=== PATIENT | female | born 1940 | race Caucasian/White ===

== ENCOUNTER 2021-09-16 06:32 | Inpatient (IN) | payer OTHER ==
[2021-09-14 13:26] LABS: BASOPHILS % (AUTO) 1.2 % (0.0-5.0); EOSINOPHILS % (AUTO) 2.9 % (0.0-8.0); HEMATOCRIT 38.3 % (36-48); LYMPHOCYTES % (AUTO) 29.9 % (21.0-51.0); MEAN CORPUSCULAR HEMOGLOBIN 32.8 pg (27.0-33.0); MEAN CORPUSCULAR HGB CONC 33.4 g/dL (32.0-36.0); MEAN CORPUSCULAR VOLUME 98.2 fL (79-99); MONOCYTES % (AUTO) 11.9 % (3.0-13.0); NEUTROPHILS % (AUTO) 53.9 % (40.0-77.0); PLATELET COUNT (AUTO) 193 K/uL (130-400); RED CELL DISTRIBUTION WIDTH 13.8 % (11.0-15.5); WHITE BLOOD COUNT (AUTO) 5.2 K/uL (4.8-10.8)
[2021-09-14 13:35] LABS: CREATININE 0.7 mg/dL (0.5-1.5); POTASSIUM 4.3 mmol/L (3.5-5.1)
[2021-09-14 13:43] LABS: APPEARANCE,URINE Clear (CLEAR); BILIRUBIN,URINE Negative (NEGATIVE); COLOR,URINE Yellow (YELLOW); GLUCOSE, URINE (UA) Negative (NEGATIVE); KETONES,URINE Negative (NEGATIVE); LEUKOCYTE ESTERASE ,URINE Moderate (NEGATIVE); NITRATE,URINE Negative (NEGATIVE); OCCULT BLOOD,URINE Negative (NEGATIVE); PROTEIN,URINE Negative (NEGATIVE); UROBILINOGEN,URINE 0.2 mg/dL (0.2-1.0)
[2021-09-14 14:03] LABS: INR 1.1 (0.85-1.15); PROTHROMBIN TIME 11.9 SEC (9.6-11.6)
[2021-09-14 14:22] LABS: BACTERIA,URINE Rare /HPF (None Seen); RBC,URINE 0-1 /HPF (0-1); SQUAMOUS EPITHELIAL CELL,UR Rare /HPF (0-2)
[2021-09-15 11:46] VITALS: BP 193/88
[~2021-09-16] VITALS: Ht 162.6 cm; Wt 82.4 kg
[2021-09-16] VITALS (21 sets, daily range): BP systolic 97–182; BP diastolic 48–103
[~2021-09-16 06:32] MED LIST: DABI150C PO; HYDR50TA PO; LEVO125C4 PO; METO-391 PO
[2021-09-16] MEDS ORDERED: LACTATED RINGERS 1000ML 1,000 ML IV ONE (07:05)
[2021-09-16] MEDS ORDERED: GENTAMICIN SULFATE 240 MG in 0.9%NACL 100ML 100 ML IV SCH (07:30)
[2021-09-16] MEDS ORDERED: CEFAZOLIN SODIUM 1 GM VIAL ONE (07:38)
[2021-09-16] MEDS ORDERED: PROPOFOL 10 MG/ML 20ML VIAL IV ONE ×2 (08:01→08:11)
[2021-09-16] MEDS ORDERED: LIDOCAINE PF 100MG/5ML (2%) SYRINGE 5ML ONE (08:01)
[2021-09-16] MEDS ORDERED: SUCCINYLCHOLINE CHLORIDE 20 MG/ML 10 ML VIAL ONE (08:01)
[2021-09-16] MEDS ORDERED: FENTANYL CITRATE PF 50 MCG/1 ML 2ML VIAL ONE (08:02)
[2021-09-16] MEDS ORDERED: ROCURONIUM 10MG/1ML SYR 10 MG/ML ML ONE ×2 (08:02→11:21)
[2021-09-16] MEDS ORDERED: ROPIVACAINE 0.5% 5MG/ML 30ML IJ ONE (08:07)
[2021-09-16] MEDS ORDERED: PHENYLEPHRINE HCL 10 MG/ML 1ML VIAL IV ONE ×2 (08:08)
[2021-09-16] MEDS: CEFAZOLIN SODIUM 1 GM VIAL ONE ×2 (08:39→09:08)
[2021-09-16] MEDS ORDERED: GLYCOPYRROLATE 1 MG/5 ML SYRINGE ONE ×2 (09:09→12:28)
[2021-09-16] MEDS ORDERED: CEFAZOLIN SODIUM 1 GM VIAL IRRIG ONE (09:55)
[2021-09-16] MEDS ORDERED: NEOSTIGMINE 5MG/5ML SYR IV ONE (11:40)
[2021-09-16] MEDS ORDERED: ONDANSETRON 4MG INJ ONE (11:55)
[2021-09-16] MEDS ORDERED: MEPERIDINE-PF 25 MG/ML SYG ONE ×3 (11:56→13:06)
[2021-09-16] MEDS ORDERED: POTASSIUM CHLORIDE 20MEQ/100ML 100 ML IV PRN (12:00)
[2021-09-16] MEDS ORDERED: TRAMADOL HCL 50 MG TABLET PO PRN (12:00)
[2021-09-16] MEDS ORDERED: LIDOCAINE HCL-MPF 1% 2ML VIAL IV PRN (12:00)
[2021-09-16] MEDS ORDERED: KCL 20 MEQ ERTAB PO PRN (12:00)
[2021-09-16] MEDS ORDERED: POTASSIUM CHLORIDE 10% ELIXIR 20 MEQ/15 ML UDCUP PO PRN (12:00)
[2021-09-16] MEDS ORDERED: ONDANSETRON 4MG INJ IVP PRN (12:00)
[2021-09-16] MEDS ORDERED: DiphenhydrAMINE HCL 50 MG/ML VIAL IVP PRN (12:00)
[2021-09-16] MEDS ORDERED: KETOROLAC 15MG/ML VIAL (15MG/ML) IV PRN (12:00)
[2021-09-16] MEDS: 0.9%NACL 1000ML 1,000 ML IV SCH ×2 (12:00→18:28)
[2021-09-16] MEDS: ACETAMINOPHEN 500 MG TABLET PO SCH ×2 (14:26→20:59)
[2021-09-16] MEDS: OXYCODONE HCL 5 MG TAB PO PRN (15:51)
[2021-09-16] MEDS: CELECOXIB 200 MG CAP PO SCH ×2 (20:58→21:00)
[2021-09-16] MEDS: CEFAZOLIN SODIUM 1 GM VIAL IVP SCH (20:58)
[2021-09-16] MEDS: FAMOTIDINE 20MG TAB PO SCH (20:58)
[2021-09-16] MEDS: METOPROLOL SUCCINATE 50 MG TAB.SR.24H PO SCH (20:59)
[2021-09-16] MEDS ORDERED: DABIGATRAN 150MG CAPSULE PO SCH (21:00)
[2021-09-17] VITALS (7 sets, daily range): BP systolic 118–146; BP diastolic 33–50
[2021-09-17] MEDS: CEFAZOLIN SODIUM 1 GM VIAL IVP SCH (00:23)
[2021-09-17] MEDS: ACETAMINOPHEN 500 MG TABLET PO SCH ×3 (05:02→21:01)
[2021-09-17 05:18] LABS: MEAN CORPUSCULAR HEMOGLOBIN 32.8 pg (27.0-33.0); MEAN CORPUSCULAR HGB CONC 33.8 g/dL (32.0-36.0); RED BLOOD CELL COUNT(AUTO) 2.68 MIL/uL (4.00-5.50); RED CELL DISTRIBUTION WIDTH 13.7 % (11.0-15.5); WHITE BLOOD COUNT (AUTO) 5.4 K/uL (4.8-10.8)
[2021-09-17 05:31] LABS: CREATININE 0.6 mg/dL (0.5-1.5); POTASSIUM 3.8 mmol/L (3.5-5.1)
[2021-09-17] MEDS: LEVOTHYROXINE 125 MCG TABLET PO SCH (06:00)
[2021-09-17] MEDS: OXYCODONE HCL 5 MG TAB PO PRN (08:00)
[2021-09-17] MEDS: 0.9%NACL 1000ML 1,000 ML IV SCH (08:00)
[2021-09-17] MEDS: METOPROLOL SUCCINATE 50 MG TAB.SR.24H PO SCH ×2 (08:07→21:00)
[2021-09-17] MEDS: HYDROCHLOROTHIAZIDE 25 MG TABLET PO SCH (08:07)
[2021-09-17] MEDS: TAMSULOSIN HCL 0.4 MG CAP.ER.24H PO SCH ×2 (09:00→09:37)
[2021-09-17] MEDS: CELECOXIB 200 MG CAP PO SCH ×2 (09:00→21:00)
[2021-09-17] MEDS: DABIGATRAN 150MG CAPSULE PO SCH ×2 (09:36→21:00)
[2021-09-17] MEDS: FAMOTIDINE 20MG TAB PO SCH ×2 (09:36→20:59)
[2021-09-17] MEDS: POLYETHYLENE GLYCOL 3350 17 GM POWD.PACK PO SCH (09:37)
[2021-09-17] MEDS: FERROUS FUMARATE 324 MG TABLET PO PRN (12:00)
[2021-09-17] MEDS: CALCIUM CARB 500MG PO PRN ×2 (12:00→21:01)
[2021-09-18] MEDS: ACETAMINOPHEN 500 MG TABLET PO SCH ×3 (03:12→19:33)
[2021-09-18] MEDS: OXYCODONE HCL 5 MG TAB PO PRN ×4 (03:13→19:34)
[2021-09-18 03:59] VITALS: BP 146/42
[2021-09-18 04:41] LABS: MEAN CORPUSCULAR HEMOGLOBIN 33.1 pg (27.0-33.0); MEAN CORPUSCULAR HGB CONC 33.6 g/dL (32.0-36.0); MEAN CORPUSCULAR VOLUME 98.4 fL (79-99); RED BLOOD CELL COUNT(AUTO) 2.54 MIL/uL (4.00-5.50); RED CELL DISTRIBUTION WIDTH 13.6 % (11.0-15.5)
[2021-09-18] MEDS: LEVOTHYROXINE 125 MCG TABLET PO SCH (05:26)
[2021-09-18 08:00] VITALS: BP 119/32
[2021-09-18] MEDS: POLYETHYLENE GLYCOL 3350 17 GM POWD.PACK PO SCH (09:00)
[2021-09-18] MEDS: CELECOXIB 200 MG CAP PO SCH ×2 (09:00→19:34)
[2021-09-18] MEDS: HYDROCHLOROTHIAZIDE 25 MG TABLET PO SCH (09:00)
[2021-09-18] MEDS: METOPROLOL SUCCINATE 50 MG TAB.SR.24H PO SCH ×2 (09:00→19:32)
[2021-09-18 09:30] VITALS: BP 118/55
[2021-09-18] MEDS: FAMOTIDINE 20MG TAB PO SCH ×2 (10:27→19:32)
[2021-09-18] MEDS: TAMSULOSIN HCL 0.4 MG CAP.ER.24H PO SCH (10:27)
[2021-09-18] MEDS: FERROUS FUMARATE 324 MG TABLET PO PRN (10:27)
[2021-09-18] MEDS: DABIGATRAN 150MG CAPSULE PO SCH ×2 (10:27→19:33)
[2021-09-18 12:00] VITALS: BP 126/38
[2021-09-18 16:00] VITALS: BP 126/40
[2021-09-18 20:05] VITALS: BP 146/45
[2021-09-18] MEDS ORDERED: DIPHENHYDRAMINE HCL 25 MG CAPSULE PO ONE (21:00)
[2021-09-19 00:06] VITALS: BP 125/48
[2021-09-19] MEDS: ACETAMINOPHEN 500 MG TABLET PO SCH ×4 (03:25→19:42)
[2021-09-19] MEDS: OXYCODONE HCL 5 MG TAB PO PRN ×3 (03:26→19:42)
[2021-09-19 03:55] VITALS: BP 140/55
[2021-09-19 04:34] LABS: HEMATOCRIT 22.3 % (36-48); MEAN CORPUSCULAR HEMOGLOBIN 32.6 pg (27.0-33.0); MEAN CORPUSCULAR HGB CONC 34.1 g/dL (32.0-36.0); MEAN CORPUSCULAR VOLUME 95.7 fL (79-99); RED BLOOD CELL COUNT(AUTO) 2.33 MIL/uL (4.00-5.50); RED CELL DISTRIBUTION WIDTH 13.2 % (11.0-15.5); WHITE BLOOD COUNT (AUTO) 5.3 K/uL (4.8-10.8)
[2021-09-19] MEDS: LEVOTHYROXINE 125 MCG TABLET PO SCH (06:20)
[2021-09-19] MEDS: FERROUS FUMARATE 324 MG TABLET PO PRN (06:21)
[2021-09-19] MEDS: FAMOTIDINE 20MG TAB PO SCH ×2 (07:59→19:42)
[2021-09-19] MEDS: METOPROLOL SUCCINATE 50 MG TAB.SR.24H PO SCH ×2 (07:59→19:42)
[2021-09-19 08:00] VITALS: BP 121/55
[2021-09-19] MEDS: CELECOXIB 200 MG CAP PO SCH ×2 (09:00→18:10)
[2021-09-19] MEDS: HYDROCHLOROTHIAZIDE 25 MG TABLET PO SCH (09:00)
[2021-09-19] MEDS: TAMSULOSIN HCL 0.4 MG CAP.ER.24H PO SCH (09:00)
[2021-09-19] MEDS: POLYETHYLENE GLYCOL 3350 17 GM POWD.PACK PO SCH (09:00)
[2021-09-19] MEDS: DABIGATRAN 150MG CAPSULE PO SCH ×2 (09:15→19:42)
[2021-09-19] MEDS ORDERED: BISACODYL 10 MG SUPP.RECT RC PRN (12:00)
[2021-09-19 12:03] VITALS: BP 132/44
[2021-09-19] MEDS ORDERED: FERR324T10 PO (14:21)
[2021-09-19] MEDS ORDERED: HYDR-4060 PO (14:21)
[2021-09-19] MEDS ORDERED: ACETAMINOPHEN 325 MG TAB PO SCH (14:30)
[2021-09-19 16:00] VITALS: BP 144/63
[2021-09-19 20:32] VITALS: BP 149/42
== END 2021-09-19 21:35 | disposition home health service (06) | DRG 470 ==
LOC: DAH 06:32 → DAHIP 06:33 → OBSVTOIN 06:33 → DAH 06:33 → 4AH 13:52
PROVIDERS: ADMIT Orthopaedic Surgery; ATTEND Orthopaedic Surgery
PROC: 0SR90JZ Replacement of Right Hip Joint with Synthetic Substitute, Open Approach (ICD-10-PCS; principal; 2021-09-16 09:50)
PROC: 30233N1 Transfusion of Nonautologous Red Blood Cells into Peripheral Vein, Percutaneous Approach (ICD-10-PCS; 2021-09-19)
DX: M16.11 Unilateral primary osteoarthritis, right hip (principal); D62 Acute posthemorrhagic anemia; R26.89 Other abnormalities of gait and mobility; G89.29 Other chronic pain; F41.9 Anxiety disorder, unspecified; F32.A Depression, unspecified; I48.91 Unspecified atrial fibrillation; M79.7 Fibromyalgia; I10 Essential (primary) hypertension; Z88.6 Allergy status to analgesic agent; Z88.8 Allergy status to other drugs, medicaments and biological substances; Z90.49 Acquired absence of other specified parts of digestive tract; Z86.711 Personal history of pulmonary embolism; Z86.718 Personal history of other venous thrombosis and embolism; Z85.038 Personal history of other malignant neoplasm of large intestine; Z95.2 Presence of prosthetic heart valve; Z79.01 Long term (current) use of anticoagulants; Z83.3 Family history of diabetes mellitus; Z80.49 Family history of malignant neoplasm of other genital organs; Z82.49 Family history of ischemic heart disease and other diseases of the circulatory system; Z20.822 Contact with and (suspected) exposure to COVID-19
CPT/HCPCS: 36415; 36430; 73503; 80048; 81001; 85025; 85027; 85610; 86850; 86900; 86901; 86923; 87088; 87635; 87641; 88305; 88311; 97039; C1776; C9803; G0378; J0330; J0690; J1200; J1580; J1885; J2001; J2175; J2370; J2405; J2704; J2710; J2795; J3010; J3490; J7120; P9016